=== PATIENT | female | born 1945 | race African-American/Black ===

== ENCOUNTER → 2016-11-22 | Day surgery (SDC) | payer MEDICARE, OTHER ==
[~2016-11-22] MED LIST: ALAVERT10 M3; AMLODIPINE BESYL5 MG PO; ASPIRIN81 M2 PO; FUROSEMIDE40 MG PO; LEVOTHYROXINE112 MCG PO; LISINOPRIL20 MG PO; MELOXICAM7.5 MG; OMEPRAZOLE40 M1 PO; PRILOSEC PO; SENSIPAR30 MG PO; SYNTHROID125 PO
--- NOTE | ~2016-11-22 | OR ---
Unit #: [id number] #: [id number] Patient: MICKI DANIELS [id number] [address] [place], [place] [address] [id number] MR#: [id number] NAME: MICKI DANIESL ROOM: Date of Procedure: 11/22/2016 Admission Date: 11/22/2016 Surgeon: Otto De La Torre M.D. : 1945 Attending Physician: Otto De La Torre M.D. Primary Care Physician: Sav Devi M.D. OPERATIVE REPORT PRIMARY CARE PHYSICIAN Sav Devi M.D. PREOPERATIVE DIAGNOSIS Iron deficiency anemia. PROCEDURES PERFORMED Upper gastrointestinal endoscopy as well as colonoscopy. POSTOPERATIVE DIAGNOSES For upper endoscopy: Mild distal erosive esophagitis. Otherwise, normal examination up to third part of duodenum. For colonoscopy: Mild sigmoid and descending colon diverticulosis. Otherwise, normal examination up to cecum. The quality of the prep was excellent. No polyps or angiodysplasias were seen. RECOMMENDATIONS 1. We will obtain the patient's iron studies, CBC. 2. We will increase the dose of omeprazole to 40 mg p.o. daily from 20 mg p.o. daily. 3. She will be followed up in the office in 8 to 10 weeks' time. SEDATION USED MAC. DESCRIPTION OF PROCEDURE Following detailed explanation of the potential risks and complications of an upper endoscopy and a colonoscopy, namely perforation, bleeding, and complications related to sedation, the patient was brought to GI lab and laid in the left lateral decubitus position. Lubricated tip of the Olympus video upper endoscope was passed through the bite block into the proximal esophagus under direct vision. The entire esophageal mucosa was examined. The patient was noted to have grade 1 distal erosive esophagitis. The scope was then advanced into the gastric cavity and the latter was insufflated. Mucosa of the fundus, body, and antrum was examined and appeared normal. Z-line was nicely demarcated, there being no esophagitis or hiatus hernia. The scope was then advanced into the gastric cavity and the latter was insufflated. Mucosa of the fundus, body, and antrum was examined and appeared unremarkable. Pylorus was intubated with visualization of the normal duodenal bulb and second and third part of the duodenum. Upon withdrawal and retroflexion; incisura, Unit #: [id number] #: [id number] Patient: DRFLOR,MICKI cardia, and greater curve was examined and no additional findings were noted. The scope was then withdrawn in the distal esophagus. Entire esophageal mucosa was examined all the way up to pharynx. No additional findings were noted. The examination table was then turned by 180 degrees and the patient positioned for a colonoscopy. A digital rectal examination was performed, which was normal. Lubricated tip of the Olympus video colonoscope was inserted through the anus and advanced under direct vision. The scope was advanced past rectosigmoid into descending colon. Multiple small to medium-sized diverticula were noted in this area. The scope tip was then navigated all the way up to cecum with visualization of the ileocecal valve and the appendiceal orifice. Preparation was excellent with good visualization and photodocumentation was obtained. Last several inches of the terminal ileum were also visualized after intubation of the ileocecal valve and appeared normal. Successive segments of the colonic mucosa were examined upon withdrawal and appeared unremarkable. There being no polyps, mass lesions, or AVMs. Other than the left-sided diverticula, no other abnormalities were noted. The patient did not have any hemorrhoids at the anal verge. The scope was then withdrawn and the patient returned to the recovery area. She tolerated the procedure without any postprocedure complications. Dictated by... Deepthi Flor/jane TD: 11/22/2016 15:40 JOB #: [id number] CC: Sav Devi M.D. OPERATIVE REPORT Page 1 of 1 X Otto De La Torre MD X PROCEDURE OPERATIVE NOTE
[2016-11-22 14:51] LABS: BASOPHIL% 0.2 % (0-2.5); EOSINOPHIL# 0.2 X10e3 (0-0.7); EOSINOPHIL% 4.2 % (0.0-7.0); HEMATOCRIT 31.5 % (35.0-45.0); HEMOGLOBIN 10.5 gm/dL (12.0-16.0); LYMPHOCYTE# 1.3 X10e3 (1.0-3.5); LYMPHOCYTE% 32.4 % (17.0-45.0); MEAN CORPUSCULAR HEMOGLOBIN 28.6 PG (28-34); MEAN CORPUSCULAR HGB CONC 33.2 g/dL (30-36); MEAN PLATELET VOLUME 8.2 FL (6.5-11.5); MONOCYTE# 0.4 X10e3 (0-1.0); MONOCYTE% 9.3 % (3.0-12.0); NEUTROPHIL# 2.2 X10e3 (1.5-7.1); NEUTROPHIL% 53.9 % (40-75); PLATELET COUNT 203 X10e3 (140-420); RED BLOOD COUNT 3.66 X10e (3.90-5.30); RED CELL DISTRIBUTION WIDTH 15.9 % (11.0-15.5); WHITE BLOOD COUNT 4.1 X10e3 (4.0-10.5)
[2016-11-22 14:55] LABS: DIFF IND NO
[2016-11-22 15:58] LABS: IRON SERUM 71 ug/dL (28-170); TOTAL IRON BINDING CAPACITY 372 ug/dL (269-535); TRANSFERRIN 266 mg/dL (192-382); TRANSFERRIN SATURATION 19 % (20-50)
== END | disposition home or self-care (01) ==
LOC: COPS 11:37
PROVIDERS: Internal Medicine Gastroenterology
DX: K22.10 Ulcer of esophagus without bleeding (principal); K57.30 Diverticulosis of large intestine without perforation or abscess without bleeding; D50.9 Iron deficiency anemia, unspecified; E03.9 Hypothyroidism, unspecified; K21.9 Gastro-esophageal reflux disease without esophagitis; I10 Essential (primary) hypertension; G47.30 Sleep apnea, unspecified; Z90.49 Acquired absence of other specified parts of digestive tract; Z95.0 Presence of cardiac pacemaker; Z98.51 Tubal ligation status; Z88.6 Allergy status to analgesic agent; Z88.2 Allergy status to sulfonamides; Z79.82 Long term (current) use of aspirin; Z79.899 Other long term (current) drug therapy; Z87.891 Personal history of nicotine dependence
CPT/HCPCS: 82728; 83540; 83550; 85025; J2250